=== PATIENT | male | born 2000 | race Caucasian/White ===

== ENCOUNTER 2018-03-30 15:40 | Inpatient (IN) | payer BC ==
[2018-03-30 16:08] LABS: ABS Basophils 0 10^3/ul (0-0.2); ABS Eosinophils 0.1 10^3/ul (0-0.6); ABS Lymphocytes 2.4 10^3/ul (1.0-4.8); ABS Monocytes 0.5 10^3/ul (0-0.8); ABS Neutrophils 2.9 10^3/ul (1.5-7.7); ABS Nucleated RBC 0 10^3/ul; Eosinophil % 2.2 %; Hematocrit 42 % (42-52); Hemoglobin 14.1 g/dl (14.0-18.0); Lymphocyte % 39.6 %; Mean Corpuscular HGB Conc 34 g/dl (31-36); Mean Corpuscular Hemoglobin 31 pg (27-31); Mean Corpuscular Volume 90 fL (80-94); Mean Platelet Volume 7.2 fL (7.4-10.4); Nucleated Red Blood Cells % 0.1; Platelet Count 257 10^3/ul (150-450); Red Blood Count 4.61 10^6/ul (4.00-5.40); Red Cell Distribution Width 13 % (10.5-15)
--- NOTE | 2018-03-30 16:15 | ED ---
Psychiatric Complaint - HPI Summary HPI Summary: This patient is a 17 year old M brought in by police to [facility] with a chief complaint of suicidal ideations since [employer]. Per the State Police of [facility], the patient was at home when he greeted the police with a knife, saying that he wanted to get shot. When he saw that the police only had a Taser, he said Oh you got a Taser I was hoping you had a gun. Police reports that he was then calm and cooperative, with no signs of EtOH use or smoking. Patient has multiple cuts on his wrists bilat. Patient with PMHx of anxiety and Aspergers. Patient will be signed out from Dr. Quinteros to Dr. Jones during a shift change , pending a MHE. - History Of Current Complaint Chief Complaint: EDMentalHealth Time Seen by Provider: 03/30/18 15:50 Hx Obtained From: Patient Character: Anxious Associated Signs And Symptoms: Positive: Hostile Has Suicidal: Reports: Thoughts, Demonstrates Gesture - Allergies/Home Medications Allergies/Adverse Reactions: Allergies Allergy/AdvReac Type Severity Reaction Status Date / Time No Known Allergies Allergy Verified 12/12/17 16:04 PMH/Surg Hx/FS Hx/Imm Hx Cardiovascular History: Denies: Hx Pacemaker/ICD Musculoskeletal History: Denies: Hx Rheumatoid Arthritis, Hx Osteoporosis Psychiatric History: Reports: Hx Anxiety, Hx Autism, Hx Depression, Hx of Violent Episodes Against Others Denies: Hx Eating Disorder, Hx Panic Disorder Infectious Disease History: No Infectious Disease History: Denies: Traveled Outside the [place] in Last 30 Days - Family History Known Family History: Positive: Other - Anxiety Negative: Cardiac Disease - Social History Alcohol Use: Occasionally Substance Use Type: Reports: Marijuana Smoking Status (MU): Never Smoked Tobacco Review of Systems Negative: Fever Positive: Anxious, Other - Suicidal ideations All Other Systems Reviewed And Are Negative: Yes Physical Exam - Summary Physical Exam Summary: General: well-appearing, no pain distress Skin: Multiple superficial lacerations on wrists bilat, about 3 cm long each. No active bleeding. Head: normal Eyes: EOMI, NICHOL ENT: normal Neck: supple, nontender Respiratory: CTA, breath sounds present Cardiovascular: RRR Abdomen: soft, nontender Bowel: present Musculoskeletal: normal, strength/ROM intact Neurological: sensory/motor intact, A&O x3 Psychological: affect/mood appropriate Triage Information Reviewed: Yes Vital Signs On Initial Exam: Initial Vitals Temp Pulse Resp BP Pulse Ox 98.2 F 80 16 141/107 98 03/30/18 15:55 03/30/18 15:55 03/30/18 15:55 03/30/18 15:55 03/30/18 15:55 Vital Signs Reviewed: Yes Diagnostics - Vital Signs Vital Signs Temp Pulse Resp BP Pulse Ox 03/30/18 15:55 98.2 F 80 16 141/107 98 - Laboratory Lab Results: Lab Results 03/30/18 Range/Units 16:02 WBC 6.0 (3.5-10.8) 10^3/ul RBC 4.61 (4.00-5.40) 10^6/ul Hgb 14.1 (14.0-18.0) g/dl Hct 42 (42-52) % MCV 90 (80-94) fL MCH 31 (27-31) pg MCHC 34 (31-36) g/dl RDW 13 (10.5-15) % Plt Count 257 (150-450) 10^3/ul MPV 7.2 L (7.4-10.4) fL Neut % (Auto) 48.8 % Lymph % (Auto) 39.6 % [place] % (Auto) 8.6 % Eos % (Auto) 2.2 % Baso % (Auto) 0.8 % Absolute Neuts (auto) 2.9 (1.5-7.7) 10^3/ul Absolute Lymphs (auto) 2.4 (1.0-4.8) 10^3/ul Absolute Monos (auto) 0.5 (0-0.8) 10^3/ul Absolute Eos (auto) 0.1 (0-0.6) 10^3/ul Absolute Basos (auto) 0 (0-0.2) 10^3/ul Absolute Nucleated RBC 0 10^3/ul Nucleated RBC % 0.1 Result Diagrams: 03/30/18 16:02 03/30/18 16:02 Lab Statement: Any lab studies that have been ordered have been reviewed, and results considered in the medical decision making process. - EKG 16:22 Cardiac Rate: Bradycardia - 57 BPM EKG Rhythm: Sinus Rhythm ST Segment: Normal - ST elev, probable normal early repol pattern Ectopy: None Summary of EKG Findings: Right bundle branch block Course/Dx - Course Course Of Treatment: At shift change patient is cleared for mental health evaluation in the mental health evaluation is pending. Signed out of shift change. Stable. - Differential Dx/Clinical Impression Provider Diagnosis: Mental health problem Discharge - Sign-Out/Discharge Documenting (check all that apply): Sign-Out Patient Signing out patient TO: Gordo Jones - Pending a MHE - Discharge Plan Referrals: Dio Boyce MD [Primary Care Provider] - - Attestation Statements Document Initiated by Scribe: Yes Documenting Scribe: Kenrick Dunbar Provider For Whom Scribe is Documenting (Include Credential): Herbert Quinteros MD Scribe Attestation: Kenrick West, scribed for Herbert Quinteros MD on 03/30/18 at 1833. Scribe Documentation Reviewed: Yes Provider Attestation: The documentation as recorded by the Kenrick perry accurately reflects the service I personally performed and the decisions made by me, Herbert Quinteros MD Status of Scribe Document: Viewed
[2018-03-30 16:27] LABS: ALT 15 U/L (7-52); AST 19 U/L (13-39); Albumin 4.5 g/dL (3.2-5.2); Alkaline Phosphatase 45 U/L (34-104); Anion Gap 4 mmol/L (2-11); BUN/Creatinine Ratio 11.9 (8-20); Blood Urea Nitrogen 12 mg/dL (6-24); CO2 Carbon Dioxide 29 mmol/L (22-32); Calcium 9.3 mg/dL (8.6-10.3); Chloride 105 mmol/L (101-111); EGFR Non-African American 95.2 (>60); Globulin 2.3 g/dL (2-4); Glucose 100 mg/dL (70-100); Sodium 138 mmol/L (135-145); Total Protein 6.8 g/dL (6.4-8.9)
[2018-03-30 17:02] LABS: Acetaminophen < 15 mcg/mL; Alcohol < 10 mg/dL (<10); Salicylate < 2.50 mg/dL (<30)
[2018-03-30 17:17] LABS: TSH (Thyroid Stimulating Horm) 0.41 mcIU/mL (0.34-5.60)
[2018-03-30 20:21] LABS: Urine Appearance Cloudy; Urine Bilirubin Negative (Negative); Urine Blood Negative (Negative); Urine Color Straw; Urine Glucose Negative (Negative); Urine Ketones Negative (Negative); Urine Nitrite Negative (Negative); Urine Protein Negative (Negative); Urine Specific Gravity 1.009 (1.010-1.030); Urine Urobilinogen Negative (Negative)
[2018-03-30 20:46] LABS: Barbiturates Urine Screen None Detected (None Detect); Benzodiazepine Urine Screen None Detected (None Detect); Urine Cannabinoids Screen Presumptive Positive (None Detect)
--- NOTE | 2018-03-30 21:03 | ED ---
Progress - Progress Note Progress Note: Sign out from Dr. Quinteros at 1900 pending MHE. Patient underwent MHE under Dr. Patel and was recommended for admittance with a Dx of mood disorder. - Consult/PCP Time Called: 18:30 Course/Dx - Course Course Of Treatment: Sign out from Dr. Quinteros at 1900 pending MHE. Patient underwent MHE under Dr. Patel and was recommended for admittance with a Dx of mood disorder. - Diagnoses Provider Diagnoses: Mood disorder Discharge - Sign-Out/Discharge Documenting (check all that apply): Patient Departure - Admit per MHE - Discharge Plan Referrals: Dio Boyce MD [Primary Care Provider] - - Attestation Statements Document Initiated by Lexiiibadan: Yes Documenting Scribe: Armani Ayers Provider For Whom Chen is Documenting (Include Credential): Gordo Jones MD Scribe Attestation: Armani West, scribed for Gordo Jones MD on 03/30/18 at 2102. Status of Scribe Document: Ready
[2018-03-31] MEDS ORDERED: Al Hydrox/Mg Hydrox/Simet LIQ* 30 ML UDC PO PRN (07:44)
[2018-03-31] MEDS ORDERED: Acetaminophen TAB* 325 MG PO PRN (07:44)
[2018-03-31] MEDS ORDERED: Gabapentin CAP(*) 300 MG PO SCH ×2 (09:00→21:00)
[2018-03-31] MEDS: Sertraline* 50 MG TAB PO SCH (09:32)
[2018-03-31] MEDS: Vitamin THERAPEUTIC TAB PO SCH (09:33)
--- NOTE | 2018-03-31 12:57 | HP ---
DATE OF ADMISSION: 03/30/2018. PROVIDER: Judit Segovia NP in Psychiatry. SUPERVISING PHYSICIAN: Dr. Rome Ba* (dictated by Judit Segovia NP). JUSTIFICATION FOR ADMISSION: The patient is in need of 24 hour supervision and care secondary to suicidal ideation and homicidal statements. CHIEF COMPLAINT: "I want an understanding of myself." HISTORY OF PRESENT ILLNESS: The patient is a 17-year-old, single, white male with a reported history of autism, OCD, ODD, depression, anxiety, and personality disorder who arrives brought in by [facility] on a 9.39 status after throwing something at his father and threatening that he wanted to kill his family. In addition, it seems that he threatened a occupational health and safety officer and asked them to shoot him, but as they did not have guns in their hands he did not attack them. Walter states that things are bad at home. He lives in [place]. He lives with his mom and dad. He has two half brothers, Donny who is 29 and Lazaro who is 34. He states that overstimulation makes him anxious, that he has panic attacks every two to three weeks at home. Much of this is following a diagnosis of cancer of his father. The stressors include a loss of interest, high anxiety, some energy loss, and an inability to concentrate. He also describes feeling frozen, depersonalized, and worried. PAST PSYCHIATRIC HISTORY: He has had no previous psychiatric hospitalizations, although he has been evaluated in the past here and at another hospital near [place]. He sees a psychiatrist named Dr. Rj Rmaos who is in [place]. He used to see a therapist, but he does not see one any longer. He sees Dr. Ramos every six weeks, but sometimes he states he cannot get out of the house because he is too anxious, so he skips the appointment. He reports that his episodes which have begun since he was about [id number] have gotten worse. This time he did threaten homicide, he threw things, he has become violent in his episodes of rage and anger that upset him. He has access to knives; he has a knife collection. He does not anticipate stabbing himself as the pain would be too great, but he did threaten others with a knife. PAST MEDICAL HISTORY: He denies have any major disorders, surgeries, or allergies. He states he sees a primary care, Dr. Dio Boyce, in [place] and he uses [facility] in [place]. Traumatic brain injury is denied. TRAUMA HISTORY: He denies. HISTORY OF SUBSTANCE USE: He uses marijuana daily. He states that he would like to use 2 to 2.5 grams per day of cannabis. He was in the past addicted to Tramadol. On into he took 20 mg of Roxicodone which he said got him too high and he did not enjoy that. He uses a vape for nicotine. He drinks what he calls socially every week or every other week where he has five to six shots of alcohol. FORENSIC ISSUES: He does have access to knives, but not to guns. He is becoming more violent. FAMILY HISTORY: On mom's side, mom had depression. He has an uncle on that side who went to a psychiatric hospital, but the details are not clear. His half-brother, Lazaro, who is related to his dad, was aggressive in his youth and went to a MIACRA, which [facility] states was not helpful. SOCIAL HISTORY: He lives in [place], [place]. He lives with mom and dad. He has two half-brothers, Donny and Lazaro. Donny is 29 and Lazaro is 34. 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 He has not been in the . He is encountering legal problems. The [facility] at this point has a warrant out for his arrest and would like to be contacted when he is discharged. REVIEW OF SYMPTOMS: The patient reports feeling alert. He denies shortness of breath, heat or cold intolerance, chest pain or abdominal pain. He denies neurological symptoms. He denies fevers or changes in weight. PHYSICAL EXAMINATION VITAL SIGNS: On March 30 at 1555: Temperature 98.2, pulse 80, respirations 16, oxygen saturation on room air 98, blood pressure 141/107 which did come down at 2226 to 121/64. LABORATORY DATA: Laboratory data is largely within normal limits. Exceptions include MPV low at 7.2, total bilirubin high at 1.10, urine specific gravity low at 1.009, and a positive cannabinoid screen for toxicology. MENTAL STATUS EXAM: Walter is a tall, attractive young man with christiano brown hair wearing a hoodie sweatshirt that says [place] [employer]. He is calm and cooperative. His eye contact is fair to good. His speech rate is normal with a normal tone and volume. He appears to be euthymic. His affect is anxious. His thought process is sequential and goal-directed. His thought content does not include delusions. He is not currently homicidal or suicidal. He is not hallucinating, although he says he hallucinates when he takes Risperdal and marijuana. His insight is fair. His judgment is poor. He is alert and oriented times three. DIAGNOSES: AXIS I: This is a preliminary diagnosis: Impulse control disorder, substance- induced mood disorder. AXIS II: Deferred for now. AXIS III: None. IMPRESSION: Walter is a 17-year-old man who got angry with his family, starting shouting, screaming, threatening and throwing things. The police were called who took him to the hospital where he was evaluated and brought on to the unit on an 9.39 status. At this point, he is calm and can look back over the events and see that he was irrational and unreasonable. He does not understand why he does these things. PLAN: The patient is admitted to the Adult Behavioral Health Unit and placed on q.15 minutes for his own safety. He is encouraged to participate in supportive milieu, individual and group therapies. Estimated length of stay is three to seven days. We will obtain an MMPI for diagnostic clarification. We will titrate medications to efficacy, including continuing Zoloft and Gabapentin and starting Depakote ER 500 mg. discharge planning will include family involvement and outpatient providers. JUDIT SEGOVIA, GARRETT [id number]/[facility] #: [id number] LULÚ
[2018-03-31] MEDS: Gabapentin CAP(*) 300 MG PO SCH (14:44)
[2018-03-31] MEDS ORDERED: Divalproex DR TAB(*) 500 MG PO SCH (21:00)
[2018-03-31] MEDS ORDERED: risperiDONE TAB* 1 MG PO SCH (21:00)
[2018-03-31] MEDS ORDERED: Divalproex ER TAB(*) 500 MG PO SCH (21:00)
[2018-04-01] MEDS: Gabapentin CAP(*) 300 MG PO SCH (10:02)
[2018-04-01] MEDS: Sertraline* 50 MG TAB PO SCH (10:02)
[2018-04-01] MEDS: Vitamin THERAPEUTIC TAB PO SCH (10:03)
[2018-04-01 10:08] VITALS: BP 123/76
--- NOTE | 2018-04-01 22:15 | DS ---
CC: Dr. Corey Yost; Dr. Rj Ramos; [facility]; Dr. Dio Boyce* DISCHARGE SUMMARY: DATE OF ADMISSION: 03/30/18 DATE OF DISCHARGE: 04/01/18 PROVIDER: Judit Segovia NP PSYCHIATRY SUPERVISING PHYSICIAN: Dr. Mark De Leon* (dictated by Judit Segovia NP). DIAGNOSES: [place] I: Substance-induced mood disorder. [place] II: Cluster B traits. CONDITION AT THE TIME DISCHARGE: Improved, psychiatrically cleared, stable. Walter participated in some groups and was social with some peers. His family is agreeable to discharge as is Walter. He has done well here psychiatrically. He tolerated new meds including Depakote well. He will be following up with Dr. Corey Yost and Dr. Rj Ramos. MENTAL STATUS EXAM AT THE TIME OF DISCHARGE: Walter is calm, cooperative, and makes good eye contact. He is alert and oriented. His grooming is excellent. His speech pace is normal. His thought processes are logical. He is not psychotic or delusional. He denies AH, VH, SI and HI. His insight is fair. His judgment is fair to poor. He is willing to follow up. He is urged to see a therapist. DISCHARGE INSTRUCTIONS TO THE PATIENT: A. Medications: 1. Depakote ER 500 mg at bedtime, dispense 30. 2. Gabapentin 300 mg at 9 a.m. and 2 p.m., dispense 60. 3. Gabapentin 600 mg at bedtime, this is in 300 mg capsules, dispense 60. 4. Sertraline 50 mg, dispense 30, that is to go with the 100 mg he already has. B. Diet: Regular. C. Activities: As tolerated. Walter is a nonsmoker. There are no studies pending at the time of discharge. D. Followup Care: Dr. Corey Yost, he has an appointment on 04/07/18 at 4 p.m. ; Rj Ramos, he needs to call at [phone] to make Monico schedule that appointment. He has an appointment for intake at [facility] on 04/02/18 at 4 p.m. and he may follow up with Dr. Dio Boyce, his primary care provider. All 4 of these folks should be getting carbon copies of this discharge summary. E. Substance Abuse Followup: He has been referred to [facility] for substance abuse treatment and any appropriate medication that he might need. HOSPITAL COURSE: Part A: Chief Complaint: "I want an understanding of myself. " The patient is a 17-year-old single white male with a reported history of autism, OCD, ODD, depression, anxiety, and personality disorder, who arrives brought in by [facility] on a 9.39 status after throwing something at his father and threatening that he wanted to kill his family. In addition, it seems that he threatened a harbor police lieutenant and asked them to shoot him, but as they did not have guns in their hands, he did not attack them. Walter states that things are bad at home. He lives in [place]. He lives with his mom and dad. He has 2 half- brothers, Ehsan who is 29 and Lazaro who is 34. He states that overstimulation makes him anxious that he has panic attacks every 2 to 3 weeks at home. Much of this is following a diagnosis of cancer of his father. The stressors include a loss of interest, high anxiety, some energy loss, and an inability to concentrate. He also describes feeling frozen, depersonalized, and worried. Part B: Psychiatric treatment was rendered. Walter was admitted to the Adult Behavioral Unit and placed on 15-minute checks for safety, which were advanced to 30-minute checks. He did well on the unit and went to some groups. He interacted well with appropriate peers. He tolerated medications including Depakote and an alteration to the gabapentin schedule, which changed from his own decision to take 900 mg in the morning to a more reasonable 300 at 9, 300 at 2 p.m., and 600 at bedtime. We did briefly meet with his family, Shanti and Luis Manuel, they were in agreement that it is time for him to come home. We have to discharge him to this [facility] Department and he needs to go before a gas plant technician or commercial loan collection officer to get the assault in the third-degree assault charge taken care of. He is improved. Much of this is related to substance use. Although he is positive only for cannabinoids, it seems that he has experimented with multiple drugs and very recently experimented with an OxyContin or an oxycodone and though coming down from this seems to have caused him to have significant mood dysregulation. He states that he understands that this is not a possibility for him to dabble in drugs and medications that are not his own. He is unenthusiastic about going to [facility], but states he will go to the [facility]. He is interested in working with Dr. Corey Yost. He is improved. His mood has been stable throughout his brief stay here and we wish him well. Judit Segovia, GARRETT [id number]/[facility] #: [id number] LULÚ
== END 2018-04-01 14:05 | disposition home or self-care (01) | DRG 773 ==
LOC: ED 15:40 → BSU 22:15
PROVIDERS: ADMIT Psychiatry & Neurology Psychiatry; ATTEND Psychiatry & Neurology Psychiatry
DX: F11.94 Opioid use, unspecified with opioid-induced mood disorder (principal); F84.5 Asperger's syndrome; F84.0 Autistic disorder; R45.851 Suicidal ideations; F41.9 Anxiety disorder, unspecified; F32.9 Major depressive disorder, single episode, unspecified; F12.90 Cannabis use, unspecified, uncomplicated; F63.9 Impulse disorder, unspecified; R45.850 Homicidal ideations; F42.9 Obsessive-compulsive disorder, unspecified; F91.3 Oppositional defiant disorder; F60.9 Personality disorder, unspecified; Z81.8 Family history of other mental and behavioral disorders
CPT/HCPCS: 36415; 80053; 80307; 80320; 80329; 81003; 84443; 85025; 93005; 99222; 99238; 99284; A9270-GY; G0480

== ENCOUNTER 2022-10-25 11:53 | Inpatient (IN) ==
[2022-10-25] MEDS ORDERED: Tetan/Diph/Pertus SYR(Tdap) 0.5 ML SYR(BOOSTRIX) use SYR contains LATEX IM ONE (12:14)
[2022-10-25] MEDS ORDERED: Lorazepam PYXIS KEY PRN ×2 (12:17→22:29)
[2022-10-25] MEDS ORDERED: LORazepam 2 mg VIAL 1 ml IM ONE ×2 (12:17→22:29)
[2022-10-25] MEDS ORDERED: Haloperidol 5 mg/ml SDV IV/IM 5 MG/ML AMP IM ONE ×2 (12:19→22:35)
[2022-10-25] MEDS ORDERED: Nicotine PATCH 21 MG/24 HR PATCH TRANSDERM ONE (17:48)
[2022-10-25 18:13] LABS: Urine Benzodiazepine Screen None Detected (None Detect); Urine Cannabinoids Screen Presumptive Positive (None Detect); Urine Opiates Screen None Detected (None Detect)
[2022-10-25 18:18] LABS: Urine Appearance Cloudy; Urine Bilirubin Negative (Negative); Urine Blood Negative (Negative); Urine Color Yellow; Urine Glucose Negative (Negative); Urine Ketones Negative (Negative); Urine Nitrite Negative (Negative); Urine Protein Negative (Negative); Urine Urobilinogen Negative (Negative)
[2022-10-25 19:56] LABS: ABS Eosinophils 0.2 10^3/uL (0.0-0.5); ABS Lymphocytes 1.4 10^3/uL (1.0-4.8); ABS Monocytes 0.6 10^3/uL (0.0-1.1); ABS Neutrophils 4.9 10^3/uL (1.5-7.6); Eosinophil % 2.2 %; Hematocrit 42.8 % (38-53); Hemoglobin 14.7 g/dL (13.2-16.3); Lymphocyte % 19.6 %; Mean Corpuscular Hemoglobin 30.9 pg (27-33); Mean Corpuscular Hgb Conc 34.5 g/dL (31-36); Mean Corpuscular Volume 89.6 fL (80-97); Mean Platelet Volume 7.2 fL (7.5-11.2); Platelet Count 247 10^3/uL (150-450); Red Blood Count 4.77 10^6/uL (4.06-5.63); Red Cell Distribution Width 13.8 % (12-17); White Blood Count 7.1 10^3/uL (3.6-10.2)
[2022-10-25 20:11] LABS: ALT 51 U/L (7-52); AST 31 U/L (13-39); Albumin 4.1 g/dL (3.2-5.2); Albumin/Globulin Ratio 1.5 (1-3); Alkaline Phosphatase 54 U/L (35-149); Anion Gap 8 mmol/L (2-16); Blood Urea Nitrogen 14 mg/dL (6-24); CO2 Carbon Dioxide 27 mmol/L (22-32); Calcium 9.1 mg/dL (8.6-10.3); Chloride 102 mmol/L (101-111); Creatinine, Serum 0.88 mg/dL (0.67-1.17); Globulin 2.7 g/dL (2-4); Glucose 88 mg/dL (70-100); Potassium 4.1 mmol/L (3.5-5.0); Sodium 137 mmol/L (135-145); Total Protein 6.8 g/dL (6.4-8.9); eGFR CKD-EPI 123.9 (>60)
[2022-10-25 20:43] LABS: Acetaminophen < 15 mcg/mL; Alcohol, S < 13 mg/dL (<13); Salicylate < 2.50 mg/dL (<30)
[2022-10-25 20:59] LABS: TSH Ultra Thyroid Stim Horm 0.33 mcIU/mL (0.34-5.60)
[2022-10-26] MEDS ORDERED: Al Hydrox/Mg Hydrox/Simet LIQ 30 ML UDC PO PRN (09:26)
[2022-10-26] MEDS: Nicotine GUM 2MG FRUIT FLAVOR PO PRN (20:08)
[2022-10-27 07:58] LABS: HDL Cholesterol 56.9 mg/dL
[2022-10-27] MEDS: Vitamin THERAPEUTIC TAB PO SCH (09:08)
[2022-10-27] MEDS: Nicotine GUM 2MG FRUIT FLAVOR PO PRN ×2 (09:11→19:27)
[2022-10-27] MEDS: Nicotine PATCH 21 MG/24 HR PATCH TRANSDERM SCH (09:44)
[2022-10-28] MEDS: Nicotine PATCH 21 MG/24 HR PATCH TRANSDERM SCH ×2 (07:50→09:35)
[2022-10-28] MEDS: Vitamin THERAPEUTIC TAB PO SCH ×2 (07:50→09:35)
[2022-10-28] MEDS ORDERED: Ondansetron ODT 4 mg TAB 4 MG TAB PO PRN (08:38)
[2022-10-28] MEDS: Nicotine GUM 2MG FRUIT FLAVOR PO PRN (17:27)
[2022-10-29] MEDS: Nicotine PATCH 21 MG/24 HR PATCH TRANSDERM SCH (08:31)
[2022-10-29] MEDS: Vitamin THERAPEUTIC TAB PO SCH (08:34)
[2022-10-29] MEDS: Nicotine GUM 2MG FRUIT FLAVOR PO PRN (19:15)
[2022-10-30] MEDS: Nicotine PATCH 21 MG/24 HR PATCH TRANSDERM SCH (10:16)
[2022-10-30] MEDS: Nicotine GUM 2MG FRUIT FLAVOR PO PRN ×2 (11:44→20:23)
[2022-10-31] MEDS: Nicotine PATCH 21 MG/24 HR PATCH TRANSDERM SCH (08:15)
[2022-10-31] MEDS: Nicotine GUM 2MG FRUIT FLAVOR PO PRN (17:13)
[2022-11-01] MEDS: Nicotine PATCH 21 MG/24 HR PATCH TRANSDERM SCH (08:04)
[2022-11-01] MEDS: Polyethylene Glycol 3350 17 GM PACKET PO SCH ×2 (08:09→20:27)
[2022-11-01] MEDS: Nicotine GUM 2MG FRUIT FLAVOR PO PRN ×2 (09:12→17:10)
[2022-11-02] MEDS: Nicotine PATCH 21 MG/24 HR PATCH TRANSDERM SCH (08:31)
[2022-11-02] MEDS: Polyethylene Glycol 3350 17 GM PACKET PO SCH ×2 (08:37→21:55)
[2022-11-02] MEDS: Nicotine GUM 2MG FRUIT FLAVOR PO PRN ×3 (08:38→19:06)
[2022-11-02] MEDS ORDERED: Nicotine PATCH 21 MG/24 HR PATCH TRANSDERM ONE (10:28)
[2022-11-03] MEDS: Nicotine PATCH 21 MG/24 HR PATCH TRANSDERM SCH (08:52)
[2022-11-03] MEDS: Polyethylene Glycol 3350 17 GM PACKET PO SCH (08:53)
[2022-11-03] MEDS: Nicotine GUM 2MG FRUIT FLAVOR PO PRN ×2 (08:56→14:32)
[2022-11-03 11:32] VITALS: BP 117/80
== END 2022-11-03 14:56 | disposition home or self-care (01) | DRG 774 ==
LOC: ED 11:53 → BSU 10-26 09:26
PROVIDERS: ADMIT Psychiatry & Neurology Psychiatry; ATTEND Psychiatry & Neurology Psychiatry